=== PATIENT | male | born 1980 | race Caucasian/White ===

== ENCOUNTER 2018-08-17 16:15 | Emergency (ER) | payer OTHER, BC ==
[~2018-08-17] VITALS: Ht 177.8 cm; Wt 102.3 kg
[2018-08-17 16:55] VITALS: Ht 177.8 cm; Wt 102.3 kg
[2018-08-17] MEDS ORDERED: SYNTHROID137 MCG PO (16:57)
[2018-08-17] MEDS ORDERED: TORADOL10 MG PO (18:57)
[2018-08-17 19:19] VITALS: BP 127/87
== END 2018-08-17 19:21 | disposition home or self-care (01) ==
LOC: D.ER 16:15
DX: S39.012A Strain of muscle, fascia and tendon of lower back, initial encounter (principal); V43.52XA Car driver injured in collision with other type car in traffic accident, initial encounter; Y93.89 Activity, other specified; Y92.410 Unspecified street and highway as the place of occurrence of the external cause; M25.561 Pain in right knee; M25.551 Pain in right hip